=== PATIENT | female | born 1970 | race Caucasian/White ===

== ENCOUNTER 2016-10-24 09:37 | Emergency (ER) | payer OTHER ==
[~2016-10-24] VITALS: Ht 157.5 cm; Wt 56.8 kg
[2016-10-24] MEDS ORDERED: DULO1CAP2 (09:49)
[2016-10-24] MEDS ORDERED: ALPR0.25 (09:49)
[2016-10-24] MEDS ORDERED: ASPIRIN 81 MG CHEW TABLET PO ONE (10:15)
[2016-10-24 10:31] LABS: BASO % 0.3 % (0.0-1.0); EOS # 0.2 K/mm3 (0.0-0.50); EOS % 1.8 % (0.0-3.0); LARGE UNSTAINED CELL # 0.1 K/mm3 (0.0-0.4); LARGE UNSTAINED CELL % 1.3 % (0.0-4.0); LYMPH # 1.2 K/mm3 (1.5-4.5); LYMPH % 11.8 % (24.0-44.0); MEAN CORPUSCULAR HEMOGLOBIN 30.1 pg (27.0-33.0); MEAN CORPUSCULAR HGB CONC 33.3 g/dl (32.0-36.5); MEAN CORPUSCULAR VOLUME 90.3 fl (80.0-96.0); MONO # 0.3 K/mm3 (0.0-0.8); NEUTROPHILS % 81.7 % (36.0-66.0); PLATELET COUNT, AUTOMATED 265 k/mm3 (150-450); RED CELL DISTRIBUTION WIDTH 12.4 % (11.5-14.5); WHITE BLOOD COUNT 9.8 K/mm3 (4.0-10.0)
[2016-10-24 10:42] LABS: ANION GAP 6 MEQ/L (8-16); BLOOD UREA NITROGEN 8 MG/DL (7-18); CALCIUM LEVEL 8.9 MG/DL (8.5-10.1); CARBON DIOXIDE LEVEL 27 MEQ/L (21-32); CHLORIDE LEVEL 109 MEQ/L (98-107); CREATININE FOR GFR 0.73 MG/DL (0.55-1.02); GLOMERULAR FILTRATION RATE > 60.0 (>58); GLUCOSE, FASTING 102 MG/DL (70-105); POTASSIUM SERUM 3.8 MEQ/L (3.5-5.1); SODIUM LEVEL 142 MEQ/L (136-145)
--- NOTE | 2016-10-24 10:47 | REP ---
Portable chest x-ray: Single view. History: Chest pain. No comparison chest x-ray. Findings: EKG monitoring electrodes overlie the chest. The lungs are symmetrically aerated and free of infiltrate. Pleural angles are sharp. Heart size is normal. Impression: Negative portable chest x-ray. Signed by Tobin Damian MD 10/24/2016 10:55 A
[2016-10-24 13:29] VITALS: BP 109/68
--- NOTE | 2016-10-25 18:17 | ECGEPIP ---
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
--- NOTE | 2016-10-25 18:19 | ECGEPIP ---
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
== END 2016-10-24 13:33 | disposition home or self-care (01) ==
LOC: M ED 09:37
DX: R07.89 Other chest pain (principal); Z82.49 Family history of ischemic heart disease and other diseases of the circulatory system; F41.9 Anxiety disorder, unspecified; F32.9 Major depressive disorder, single episode, unspecified; Z90.79 Acquired absence of other genital organ(s); Z79.899 Other long term (current) drug therapy

== ENCOUNTER 2017-05-24 18:39 | Emergency (ER) | payer OTHER ==
[2017-05-24] MEDS: ONDANSETRON 4MG/2ML VIAL (J2405) IV (20:20)
[2017-05-24] MEDS: KETOROLAC 30 MG/ML VIAL (J1885) IV (20:20)
[2017-05-24 20:21] LABS: BASO % 0.2 % (0.0-1.0); EOS # 0.4 10^3/uL (0.0-0.50); EOS % 2.2 % (0.0-3.0); HEMATOCRIT 43.2 % (36.0-47.0); HEMOGLOBIN 14.2 g/dl (12.0-16.0); IMMATURE GRANULOCYTE % 0.4 % (0-3.0); LYMPH # 1.4 10^3/uL (1.5-4.5); LYMPH % 7.9 % (24.0-44.0); MEAN CORPUSCULAR HEMOGLOBIN 29.9 pg (27.0-33.0); MEAN CORPUSCULAR HGB CONC 32.9 g/dl (32.0-36.5); MEAN CORPUSCULAR VOLUME 90.9 fl (80.0-96.0); MONO # 0.6 10^3/uL (0.0-0.8); MONO % 3.6 % (0.0-5.0); NEUTROPHILS % 85.7 % (36.0-66.0); PLATELET COUNT, AUTOMATED 308 10^3/uL (150-450); RED BLOOD COUNT 4.75 10^6/uL (4.00-5.40); RED CELL DISTRIBUTION WIDTH 12.4 % (11.5-14.5); WHITE BLOOD COUNT 17.6 10^3/uL (4.0-10.0)
[2017-05-24 20:48] LABS: ANION GAP 7 MEQ/L (8-16); BLOOD UREA NITROGEN 7 MG/DL (7-18); CALCIUM LEVEL 8.9 MG/DL (8.5-10.1); CARBON DIOXIDE LEVEL 27 MEQ/L (21-32); CHLORIDE LEVEL 105 MEQ/L (98-107); CREATININE FOR GFR 0.81 MG/DL (0.55-1.30); GLOMERULAR FILTRATION RATE > 60.0 (>58); GLUCOSE, FASTING 96 MG/DL (70-100); SODIUM LEVEL 139 MEQ/L (136-145)
[2017-05-24 20:52] LABS: HCG, SERUM QUANTITATIVE < 1.0 MIU/ML
[2017-05-24 20:52] LABS: C REACTIVE PROTEIN QUANTITATIV < 0.30 MG/DL (0.00-0.30)
[2017-05-24 21:17] LABS: KETONE, URINE AUTO RFX 1+ mg/dL (NEGATIVE); LEUKOCYTE ESTERASE UR AUTO RFX NEGATIVE (NEGATIVE); MUCUS, URINE RFX MODERATE (NEGATIVE); NITRITE, URINE AUTO RFX NEGATIVE (NEGATIVE); RBC, URINE AUTO RFX 3 /HPF (0-3); SPECIFIC GRAVITY UR AUTO RFX 1.027 (1.002-1.035); SQUAM EPITHELIAL CELL UR AURFX 3 /HPF (0-6); WBC, URINE AUTO RFX 1 /HPF (0-3)
[2017-05-24] MEDS: MORPHINE 4 MG/ML 1ML VIAL (J2270) IV (22:00)
[2017-05-25] MEDS: MORPHINE 4 MG/ML 1ML VIAL (J2270) IV (00:15)
[2017-05-25] MEDS: ONDANSETRON 4 MG ORAL DISINTEGRATING TAB (S0181) PO (00:15)
[2017-05-25] MEDS: OXYCODONE/APAP 5MG/325MG(BULK FOR ED) 1 TABLET PO (00:15)
== END 2017-05-25 00:57 | disposition home or self-care (01) ==
LOC: M ED 05-25 00:57
DX: N83.201 Unspecified ovarian cyst, right side (principal); F41.9 Anxiety disorder, unspecified; F33.9 Major depressive disorder, recurrent, unspecified; Z79.899 Other long term (current) drug therapy; Z98.890 Other specified postprocedural states
CPT/HCPCS: J2270

== ENCOUNTER 2017-05-30 10:08 | Emergency (ER) | payer OTHER ==
[2017-05-30] MEDS: PERCOCET 5MG/325MG TAB PO (11:28)
[2017-05-30 11:40] LABS: BASO % 0.3 % (0.0-1.0); EOS # 0.3 10^3/uL (0.0-0.50); EOS % 2.7 % (0.0-3.0); HEMATOCRIT 41.1 % (36.0-47.0); HEMOGLOBIN 13.3 g/dl (12.0-16.0); IMMATURE GRANULOCYTE % 0.3 % (0-3.0); LYMPH # 1.7 10^3/uL (1.5-4.5); LYMPH % 15.5 % (24.0-44.0); MEAN CORPUSCULAR HEMOGLOBIN 29.6 pg (27.0-33.0); MEAN CORPUSCULAR HGB CONC 32.4 g/dl (32.0-36.5); MEAN CORPUSCULAR VOLUME 91.5 fl (80.0-96.0); MONO # 0.5 10^3/uL (0.0-0.8); MONO % 4.9 % (0.0-5.0); NEUTROPHILS # 8.4 10^3/uL (1.8-7.7); NEUTROPHILS % 76.3 % (36.0-66.0); PLATELET COUNT, AUTOMATED 309 10^3/uL (150-450); RED BLOOD COUNT 4.49 10^6/uL (4.00-5.40); RED CELL DISTRIBUTION WIDTH 12.3 % (11.5-14.5); WHITE BLOOD COUNT 10.9 10^3/uL (4.0-10.0)
== END 2017-05-30 13:26 | disposition home or self-care (01) ==
LOC: M ED 10:08
DX: N83.201 Unspecified ovarian cyst, right side (principal); R18.8 Other ascites; F41.9 Anxiety disorder, unspecified; F33.9 Major depressive disorder, recurrent, unspecified; F17.210 Nicotine dependence, cigarettes, uncomplicated; Z98.890 Other specified postprocedural states
CPT/HCPCS: 76856

== ENCOUNTER 2017-06-14 05:51 | Day surgery (SDC) | payer OTHER ==
[2017-06-14] MEDS: LR 1,000 ML IV ×3 (06:51)
[2017-06-14] MEDS ORDERED: LIDOCAINE 2% INJ 100 MG/5 ML SDV (FOR ANES.) As Ordered ×3 (07:08)
[2017-06-14] MEDS ORDERED: PROPOFOL 200 MG/20 ML VIAL As Ordered ×3 (07:08)
[2017-06-14] MEDS ORDERED: ROCURONIUM BROMIDE 50 MG/5 ML VIAL As Ordered ×3 (07:08)
[2017-06-14] MEDS ORDERED: fentaNYL 250 MCG/5 ML INJECTION (J3010) As Ordered ×3 (07:09)
[2017-06-14] MEDS ORDERED: MIDAZOLAM INJ 2 MG/2 ML VIAL (J2250) As Ordered ×3 (07:09)
[2017-06-14] MEDS ORDERED: dexameTHASONE 4 MG/ML 1ML VIAL (J1100) As Ordered ×3 (07:09)
[2017-06-14] MEDS: CEFAZOLIN SOD 1 GM in APPROPRIATE DILUENT 1 EA IV ×3 (07:45)
[2017-06-14] MEDS: ACETAMINOPHEN 650 MG SUPP PR ×3 (07:50)
[2017-06-14] MEDS ORDERED: GLYCOPYRROLATE INJ 0.2 MG/ML 2 ML VIAL As Ordered ×3 (08:03)
[2017-06-14] MEDS ORDERED: ONDANSETRON 4MG/2ML VIAL (J2405) As Ordered ×6 (08:03→11:22)
[2017-06-14] MEDS ORDERED: KETOROLAC 60 MG/2 ML VIAL (J1885) As Ordered ×3 (08:03)
[2017-06-14] MEDS ORDERED: NEOSTIGMINE 10 MG/10 ML VIAL (J2710) As Ordered ×3 (08:03)
[2017-06-14] MEDS ORDERED: HYDROmorphone HCL 2 MG/ML 1ML VIAL (J1170) As Ordered ×3 (08:03)
[2017-06-14] MEDS: LIDOCAINE W/EPINEPHRINE 1% 20ML VIAL As Ordered ×3 (08:06)
[2017-06-14] MEDS: ACETAMINOPHEN 650 MG SUPP As Ordered ×3 (08:26)
[2017-06-14] MEDS ORDERED: fentaNYL 100 MCG/2 ML INJECTION (J3010) As Ordered ×3 (09:10)
[2017-06-14] MEDS ORDERED: PERCOCET 5MG/325MG TAB PO ×3 (09:15)
[2017-06-14] MEDS ORDERED: LR 1,000 ML IV ×3 (09:15)
[2017-06-14] MEDS: fentaNYL 100 MCG/2 ML INJECTION (J3010) IV ×12 (09:18→09:45)
[2017-06-14] MEDS: PERCOCET 5MG/325MG TAB PO ×3 (09:18)
[2017-06-14] MEDS: ONDANSETRON 4MG/2ML VIAL (J2405) IV ×3 (11:30)
[2017-06-14] MEDS ORDERED: IBUPROFEN 800 MG TAB PO ×3 (12:00)
== END 2017-06-15 12:32 | disposition home or self-care (01) ==
LOC: M SDC 05:51
DX: N83.12 Corpus luteum cyst of left ovary (principal); R10.31 Right lower quadrant pain (principal); N83.292 Other ovarian cyst, left side; G89.29 Other chronic pain; N83.201 Unspecified ovarian cyst, right side; N73.6 Female pelvic peritoneal adhesions (postinfective); Z87.42 Personal history of other diseases of the female genital tract; F41.9 Anxiety disorder, unspecified; F32.9 Major depressive disorder, single episode, unspecified; Z90.710 Acquired absence of both cervix and uterus; Z79.899 Other long term (current) drug therapy; Z72.0 Tobacco use
CPT/HCPCS: 58661

== ENCOUNTER 2019-04-24 05:59 | Day surgery (SDC) | payer OTHER ==
[~2019-04-24] VITALS: Ht 157.5 cm; Wt 79.7 kg
[~2019-04-24 05:59] MED LIST: ABIL1TAB13 PO; ALPR0.25; CLON0.5T2 PO; CYMB1CAP5 PO; CYMB60CA3 PO; DULO1CAP5 PO; DULO1CAP6 PO; GABA-843 PO; IBUP80TA PO; NAPR250T4 PO; PERC5TAB12 PO; PRAZ2CAP PO; TRAZ-252 PO; ULTR50TA8 PO; ZOFR4TAB14 PO
[2019-04-24] MEDS ORDERED: BUPIVACAINE HCL 0.25% 10 ML VIAL As Ordered ONE (06:53)
[2019-04-24] MEDS ORDERED: dexameTHASONE 4 MG/ML 1ML VIAL (J1100) As Ordered ONE (06:53)
[2019-04-24] MEDS ORDERED: LIDOCAINE 1% MDV 20ML VIAL As Ordered ONE (06:53)
[2019-04-24] MEDS ORDERED: LR 1,000 ML IV ONE (07:00)
[2019-04-24] MEDS ORDERED: ceFAZolin SOD 2 GM in IV 1 EA IV ONE (07:00)
[2019-04-24] MEDS ORDERED: PROPOFOL 200 MG/20 ML VIAL As Ordered ONE ×2 (07:12→08:34)
[2019-04-24] MEDS ORDERED: MIDAZOLAM INJ 2 MG/2 ML VIAL (J2250) As Ordered ONE (07:12)
[2019-04-24] MEDS ORDERED: fentaNYL 100 MCG/2 ML INJECTION (J3010) As Ordered ONE (07:12)
[2019-04-24] MEDS ORDERED: LIDOCAINE 2% INJ 100 MG/5 ML SDV (FOR ANES.) As Ordered ONE (07:12)
[2019-04-24] MEDS ORDERED: ONDANSETRON 4MG/2ML VIAL (J2405) As Ordered ONE (07:13)
[2019-04-24] MEDS ORDERED: ePHEDrine SULFATE 25 MG/5 ML(5MG/ML) SYRINGE As Ordered ONE (08:03)
[2019-04-24] MEDS ORDERED: ACETAMINOPHEN 1000MG 100ML IV BTL (OFIRMEV) (J0131 PER 10MG) As Ordered ONE (08:03)
[2019-04-24] MEDS ORDERED: HYDR-3713 PO (08:46)
[2019-04-24 09:15] VITALS: BP 104/53
[2019-04-24] MEDS ORDERED: fentaNYL 100 MCG/2 ML INJECTION (J3010) IV PRN (09:15)
[2019-04-24] MEDS ORDERED: PERCOCET 5MG/325MG TAB PO PRN (09:15)
[2019-04-24] MEDS ORDERED: ONDANSETRON 4MG/2ML VIAL (J2405) IV PRN (09:15)
[2019-04-24] MEDS ORDERED: LR 1,000 ML IV SCH (09:15)
--- NOTE | 2019-04-24 14:33 | RO ---
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 PROCEDURE: Left dorsal exostectomy and deep peroneal nerve release. SURGEON: Markus Palma DPM CHOCOLATE PACKER: None. ANESTHESIA: Monitored anesthesia care. Preoperative injection of 17 mL of 1:1 mixture of 1% lidocaine plain, 0.5% Marcaine plain. ESTIMATED BLOOD LOSS: Minimal. MATERIALS: #4-0 Vicryl, #4-0 nylon. INJECTABLES: 1 mL Decadron, 4 mg/mL. COMPLICATIONS: None. CONDITION: Stable. Mariely Corea is a 48-year-old female who presents to [facility] with a painful nerve to her left foot. She has had previous injections without long-term relief. She presents today for surgical correction. The patient's side and site were identified and marked in preoperative area. Consent was reviewed and obtained. All risks, complications, and alternatives to the procedure were explained to the patient in detail, and all questions were answered. DESCRIPTION OF PROCEDURE: Patient was brought to the operating room and placed on the operating room table in supine position. Monitored anesthesia care was delivered by the anesthesia team. Preoperative injection of 17 mL of 1:1 mixture 1% lidocaine plain, 0.5% Marcaine plain were injected in the left foot. The left foot was prepped and draped in normal sterile fashion. Tourniquet was applied to the left ankle and inflated to 250 mmHg. A curvilinear incision was drawn over the base of the 1st metatarsal extending to the dorsal foot; it was carried through with a #15 blade. Dissection was carried down until the superficial retinaculum was identified. This was transected, and the deep peroneal nerve was identified underneath. This was carefully protected using Vesseloops. The extensor hallucis brevis tendon was noted to be overlying this nerve, and this was transected. There was the exostosis noted plantar and medial to the nerve at the dorsal surface of the medial cuneiform. This was removed with rongeur and smoothed with rasp. Some intra-nerve adhesions were noted, which were released using saline in an intra-sheath injection with a 30-gauge needle. Some further adhesions were removed until no obvious restrictions were noted. Site was irrigated with normal saline. Closure was performed using #4-0 Vicryl and #4-0 nylon, again, taking care not to impinge on the nerve during closure. 1 mL Decadron was injected. Sterile dressings were applied. Tourniquet was deflated. Patient was brought to post anesthesia care unit (PACU), vital signs stable and neurovascular status intact. She will be weightbearing as tolerated. She will followup at the office in two days.
== END 2019-04-24 09:36 | disposition home or self-care (01) ==
LOC: M SDC 05:59
PROVIDERS: ATTEND Podiatrist Foot & Ankle Surgery
DX: M25.775 Osteophyte, left foot (principal); M89.8X7 Other specified disorders of bone, ankle and foot; F41.9 Anxiety disorder, unspecified; F32.9 Major depressive disorder, single episode, unspecified; Z79.899 Other long term (current) drug therapy; F17.218 Nicotine dependence, cigarettes, with other nicotine-induced disorders
CPT/HCPCS: 28035; 28122; 88300; J0131; J0690; J1100; J2250; J2405; J3010

== ENCOUNTER 2020-02-19 12:44 | Emergency (ER) | payer OTHER ==
[~2020-02-19] VITALS: Ht 157.5 cm; Wt 74.1 kg
[~2020-02-19 12:44] MED LIST changes: +HYDR-3713 PO
[2020-02-19 12:45] VITALS: BP 142/85
== END 2020-02-19 13:54 | disposition home or self-care (01) ==
LOC: M ED 12:44
DX: S05.11XA Contusion of eyeball and orbital tissues, right eye, initial encounter (principal); Y04.8XXA Assault by other bodily force, initial encounter; Y92.198 Other place in other specified residential institution as the place of occurrence of the external cause; Y93.89 Activity, other specified; Y99.0 Civilian activity done for income or pay; F17.200 Nicotine dependence, unspecified, uncomplicated; Z79.899 Other long term (current) drug therapy

== ENCOUNTER 2020-05-08 11:08 | Emergency (ER) | payer OTHER ==
[~2020-05-08] VITALS: Ht 157.5 cm; Wt 75.0 kg
[~2020-05-08 11:08] MED LIST changes: +GABA-282 PO; -GABA-843 PO
--- OUTSIDE RECORDS SUMMARY | 2020-05-08 11:15 | CCD ---
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 Name Role Phone Segundo PAIZ DPM Unavailable Unavailable Segundo PAIZ DPM Unavailable Unavailable Segundo PAIZ DPM Unavailable Unavailable Segundo PAIZ DPM Unavailable Unavailable Segundo PAIZ DPM Unavailable Unavailable Segundo PAIZ DPM Unavailable Unavailable Segundo PAIZ DPM Unavailable Unavailable Segundo PAIZ DPM Unavailable Unavailable Segundo PAIZ DPM Unavailable Unavailable Segundo PAIZ DPM Unavailable Unavailable Segundo PAIZ DPM Unavailable Unavailable Segundo PAIZ DPM Unavailable Unavailable Segundo PAIZ DPM Unavailable Unavailable Segundo PAIZ DPM Unavailable Unavailable Segundo PAIZ DPM Unavailable Unavailable Segundo PAIZ DPM Unavailable Unavailable Segundo PAIZ DPM Unavailable Unavailable Segundo PAIZ DPM Unavailable Unavailable Segundo PAIZ DPM Unavailable Unavailable Segundo PAIZ DPM Unavailable Unavailable Segundo PAIZ DPM Unavailable Unavailable Segundo PAIZ DPM Unavailable Unavailable Segundo PAIZ DPM Unavailable Unavailable Segundo PAIZ DPM Unavailable Unavailable Segundo PAIZ DPM Unavailable Unavailable MAJAK, R BRADLEY DPM Unavailable Unavailable MAJAK, R BRADLEY DPM Unavailable Unavailable MAJAK, R BRADLEY DPM Unavailable Unavailable MAJAK, R BRADLEY DPM Unavailable Unavailable MAJAK, R BRADLEY DPM Unavailable Unavailable Re-disclosure Warning The records that you are about to access may contain information from federally-assisted alcohol or drug abuse programs. If such information is present, then the following federally mandated warning applies: This information has been disclosed to you from records protected by federal confidentiality rules (42 CFR part 2). The federal rules prohibit you from making any further disclosure of this information unless further disclosure is expressly permitted by the written consent of the person to whom it pertains or as otherwise permitted by 42 CFR part 2. A general authorization for the release of medical or other information is NOT sufficient for this purpose. The Federal rules restrict any use of the information to criminally investigate or prosecute any alcohol or drug abuse patient.The records that you are about to access may contain highly sensitive health information, the redisclosure of which is protected by Article 27-F of the [facility] Public Health law. If you continue you may have access to information: Regarding HIV / AIDS; Provided by facilities licensed or operated by the [facility] Office of Mental Health; or Provided by the [facility] Office for People With Developmental Disabilities. If such information is present, then the following [facility] mandated warning applies: This information has been disclosed to you from confidential records which are protected by state law. State law prohibits you from making any further disclosure of this information without the specific written consent of the person to whom it pertains, or as otherwise permitted by law. Any unauthorized further disclosure in violation of state law may result in a fine or shelter sentence or both. A general authorization for the release of medical or other information is NOT sufficient authorization for further disc losure. Family History Family Member Name Family Member Gender Family Member Status Date o f Status Description Data Source(s) Unknown Female Problem [facility] ([facility]) Unknown Male Encounters Encounter Providers Location Date Indications Data Source(s ) Outpatient Attender: BRADLEY PAIZ [facility] 10/2019 10:00:00 AM EDT [facility] ([facility] Outpatient Attender: BRADLEY MAJAK [facility] 06/16 08:30:00 AM EDT [facility] ([facility] Medications Medication Brand Name Start Date Product Form Dose Route Admi nistrative Instructions Pharmacy Instructions Status Indications Reaction Description Data Source(s) 50 mg 04/22/2020 12:00:00 AM EST tablet 45 TAKE 1&1/2 TABLETS BY MOUTH AT BEDTIME DIRECTED TAKE 1&1/2 TABLETS BY MOUTH AT BEDTIME DIRECTED [facility] 250 mg 04/01/2020 12:00:00 AM EST tablet 6 TAKE TWO TABLETS BY MOUTH DAY ONE THEN ONE TABLET ONCE DAILY FOR 4 DAYS TAKE TWO TABLETS BY MOUTH DAY ONE THEN O NE TABLET ONCE DAILY FOR 4 DAYS SOLD: 04/01/2020 [facility] 1 mg 03/24/2020 12:00:00 AM EST capsule 30 TAKE ONE CAPSULE BY MOUTH AT BEDTIME NEEDED FOR NIGHTMARES TAKE ONE CAPSULE BY MOUTH AT BEDTIME NEEDED FOR NIGHTMARES SOLD: 04/23/2020 [facility] 300 mg 03/24/2020 12:00:00 AM EST capsule 90 TAKE ONE CAPSULE BY MOUTH THREE TIMES A DAY DIRECTED TAKE ONE CAPSULE BY MOUTH THREE TIMES A DAY DIRECTE D SOLD: 03/25/2020 [facility] 1 mg 03/24/2020 12:00:00 AM EST capsule 30 TAKE ONE CAPSULE BY MOUTH AT BEDTIME NEEDED FOR NIGHTMARES TAKE ONE CAPSULE BY MOUTH AT BEDTIME NEEDED FOR NIGHTMARES SOLD: 03/25/2020 [facility] 300 mg 03/24/2020 12:00:00 AM EST capsule 90 TAKE ONE CAPSULE BY MOUTH THREE TIMES A DAY DIRECTED TAKE ONE CAPSULE BY MOUTH THREE TIMES A DAY DIRECTE D SOLD: 04/23/2020 [facility] 20 mg 03/24/2020 12:00:00 AM EST capsule,delayed release (DR/EC) 30 TAKE ONE CAPSULE BY MOUTH EVERY DAY TAKE ONE CAPSULE BY MOUTH EVERY DAY SOLD: 03/25/2020 [facility] 60 mg 03/24/2020 12:00:00 AM EST capsule,delayed release (DR/EC) 30 TAKE ONE CAPSULE BY MOUTH EVERY DAY TAKE ONE CAPSULE BY MOUTH EVERY DAY SOLD: 04/23/2020 [facility] 2 mg 03/24/2020 12:00:00 AM EST tablet 30 TAKE ONE TABLET BY MOUTH EVERY MORNING TAKE ONE TABLET BY MOUTH EVERY MORNING SOLD: 04/23/2020 [facility] 2 mg 03/24/2020 12:00:00 AM EST tablet 30 TAKE ONE TABLET BY MOUTH EVERY MORNING TAKE ONE TABLET BY MOUTH EVERY MORNING SOLD: 03/25/2020 [facility] 60 mg 03/24/2020 12:00:00 AM EST capsule,delayed release (DR/EC) 30 TAKE ONE CAPSULE BY MOUTH EVERY DAY TAKE ONE CAPSULE BY MOUTH EVERY DAY SOLD: 03/25/2020 [facility] 1 mg 01/20/2020 12:00:00 AM EDT capsule 30 TAKE ONE CAPSULE BY MOUTH EVERY DAY AT BEDTIME NEEDED FOR NIGHTMARES TAKE ONE CAPSULE BY MOUTH EVERY DAY AT BEDTIME NEEDED FOR NIGHTMARES SOLD: 01/20/2020 [facility] 50 mg 01/10/2020 12:00:00 AM EDT tablet 45 TAKE ONE AND ONE-HALF TABLETS BY MOUTH EVERY DAY AT BEDTIME TAKE ONE AND ONE-HALF TABLETS BY MOUTH E VERY DAY AT BEDTIME SOLD: 01/17/2020 [facility] 50 mg 01/10/2020 12:00:00 AM EDT tablet 45 TAKE ONE AND ONE-HALF TABLETS BY MOUTH EVERY DAY AT BEDTIME TAKE ONE AND ONE-HALF TABLETS BY MOUTH E VERY DAY AT BEDTIME SOLD: 03/25/2020 [facility] 2 mg 12/28/2019 12:00:00 AM EDT tablet 30 TAKE ONE TABLET BY MOUTH EVERY MORNING TAKE ONE TABLET BY MOUTH EVERY MORNING SOLD: 01/28/2020 [facility] 2 mg 12/28/2019 12:00:00 AM EDT tablet 30 TAKE ONE TABLET BY MOUTH EVERY MORNING TAKE ONE TABLET BY MOUTH EVERY MORNING SOLD: 12/30/2019 [facility] 2 mg 12/28/2019 12:00:00 AM EDT tablet 30 TAKE ONE TABLET BY MOUTH EVERY MORNING TAKE ONE TABLET BY MOUTH EVERY MORNING SOLD: 02/26/2020 [facility] 300 mg 12/12/2019 12:00:00 AM EDT capsule 90 TAKE ONE CAPSULE BY MOUTH THREE TIMES A DAY DIRECTED TAKE ONE CAPSULE BY MOUTH THREE TIMES A DAY DIRECTE D SOLD: 01/17/2020 [facility] 300 mg 12/12/2019 12:00:00 AM EDT capsule 90 TAKE ONE CAPSULE BY MOUTH THREE TIMES A DAY DIRECTED TAKE ONE CAPSULE BY MOUTH THREE TIMES A DAY DIRECTE D SOLD: 12/13/2019 [facility] 300 mg 10/16/2019 12:00:00 AM EDT capsule 90 TAKE ONE CAPSULE BY MOUTH THREE TIMES A DAY DIRECTED TAKE ONE CAPSULE BY MOUTH THREE TIMES A DAY DIRECTE D SOLD: 11/14/2019 [facility] 1 mg 10/16/2019 12:00:00 AM EDT capsule 30 TAKE ONE CAPSULE BY MOUTH AT BEDTIME NEEDED FOR NIGHTMARES TAKE ONE CAPSULE BY MOUTH AT BEDTIME NEEDED FOR NIGHTMARES SOLD: 11/14/2019 [facility] 60 mg 10/16/2019 12:00:00 AM EDT capsule,delayed release (DR/EC) 30 TAKE ONE CAPSULE BY MOUTH EVERY DAY TAKE ONE CAPSULE BY MOUTH EVERY DAY SOLD: 10/16/2019 [facility] 60 mg 10/16/2019 12:00:00 AM EDT capsule,delayed release (DR/EC) 30 TAKE ONE CAPSULE BY MOUTH EVERY DAY TAKE ONE CAPSULE BY MOUTH EVERY DAY SOLD: 12/13/2019 [facility] 300 mg 10/16/2019 12:00:00 AM EDT capsule 90 TAKE ONE CAPSULE BY MOUTH THREE TIMES A DAY DIRECTED TAKE ONE CAPSULE BY MOUTH THREE TIMES A DAY DIRECTE D SOLD: 10/16/2019 [facility] 60 mg 10/16/2019 12:00:00 AM EDT capsule,delayed release (DR/EC) 30 TAKE ONE CAPSULE BY MOUTH EVERY DAY TAKE ONE CAPSULE BY MOUTH EVERY DAY SOLD: 11/14/2019 [facility] 60 mg 10/16/2019 12:00:00 AM EDT capsule,delayed release (DR/EC) 30 TAKE ONE CAPSULE BY MOUTH EVERY DAY TAKE ONE CAPSULE BY MOUTH EVERY DAY SOLD: 01/17/2020 [facility] 1 mg 10/16/2019 12:00:00 AM EDT capsule 30 TAKE ONE CAPSULE BY MOUTH AT BEDTIME NEEDED FOR NIGHTMARES TAKE ONE CAPSULE BY MOUTH AT BEDTIME NEEDED FOR NIGHTMARES SOLD: 10/16/2019 [facility] 50 mg 09/28/2019 12:00:00 AM EDT tablet 45 TAKE 1&1/2 TABLETS BY MOUTH AT BEDTIME DIRECTED TAKE 1&1/2 TABLETS BY MOUTH AT BEDTIME DIRECTED [facility] 50 mg 09/28/2019 12:00:00 AM EDT tablet 45 TAKE 1&1/2 TABLETS BY MOUTH AT BEDTIME DIRECTED TAKE 1&1/2 TABLETS BY MOUTH AT BEDTIME DIRECTED [facility] 50 mg 09/28/2019 12:00:00 AM EDT tablet 45 TAKE 1&1/2 TABLETS BY MOUTH AT BEDTIME DIRECTED TAKE 1&1/2 TABLETS BY MOUTH AT BEDTIME DIRECTED [facility] 20 mg 09/25/2019 12:00:00 AM EDT capsule,delayed release (DR/EC) 30 TAKE ONE CAPSULE BY MOUTH EVERY DAY TAKE ONE CAPSULE BY MOUTH EVERY DAY SOLD: 11/13/2019 [facility] 2 mg 09/25/2019 12:00:00 AM EDT tablet 30 TAKE ONE TABLET BY MOUTH EVERY MORNING TAKE ONE TABLET BY MOUTH EVERY MORNING SOLD: 11/25/2019 [facility] 2 mg 09/25/2019 12:00:00 AM EDT tablet 30 TAKE ONE TABLET BY MOUTH EVERY MORNING TAKE ONE TABLET BY MOUTH EVERY MORNING SOLD: 09/26/2019 [facility] 2 mg 09/25/2019 12:00:00 AM EDT tablet 30 TAKE ONE TABLET BY MOUTH EVERY MORNING TAKE ONE TABLET BY MOUTH EVERY MORNING SOLD: 10/25/2019 [facility] 20 mg 09/25/2019 12:00:00 AM EDT capsule,delayed release (DR/EC) 30 TAKE ONE CAPSULE BY MOUTH EVERY DAY TAKE ONE CAPSULE BY MOUTH EVERY DAY SOLD: 09/26/2019 [facility] 1 mg 08/12/2019 12:00:00 AM EDT capsule 30 TAKE ONE CAPSULE BY MOUTH EVERY DAY AT BEDTIME NEEDED FOR NIGHTMARES TAKE ONE CAPSULE BY MOUTH EVERY DAY AT BEDTIME NEEDED FOR NIGHTMARES SOLD: 09/18/2019 [facility] 1 mg 08/12/2019 12:00:00 AM EDT capsule 30 TAKE ONE CAPSULE BY MOUTH EVERY DAY AT BEDTIME NEEDED FOR NIGHTMARES TAKE ONE CAPSULE BY MOUTH EVERY DAY AT BEDTIME NEEDED FOR NIGHTMARES SOLD: 08/19/2019 [facility] 300 mg 08/12/2019 12:00:00 AM EDT capsule 90 TAKE ONE CAPSULE BY MOUTH THREE TIMES A DAY DIRECTED TAKE ONE CAPSULE BY MOUTH THREE TIMES A DAY DIRECTE D SOLD: 09/18/2019 [facility] 300 mg 08/12/2019 12:00:00 AM EDT capsule 90 TAKE ONE CAPSULE BY MOUTH THREE TIMES A DAY DIRECTED TAKE ONE CAPSULE BY MOUTH THREE TIMES A DAY DIRECTE D SOLD: 08/19/2019 [facility] 20 mg 07/29/2019 12:00:00 AM EDT capsule,delayed release (DR/EC) 30 TAKE ONE CAPSULE BY MOUTH EVERY DAY TAKE ONE CAPSULE BY MOUTH EVERY DAY SOLD: 09/10/2019 [facility] 20 mg 07/29/2019 12:00:00 AM EDT capsule,delayed release (DR/EC) 30 TAKE ONE CAPSULE BY MOUTH EVERY DAY TAKE ONE CAPSULE BY MOUTH EVERY DAY SOLD: 08/07/2019 [facility] 20 mg 07/29/2019 12:00:00 AM EDT capsule,delayed release (DR/EC) 30 TAKE ONE CAPSULE BY MOUTH EVERY DAY TAKE ONE CAPSULE BY MOUTH EVERY DAY SOLD: 10/22/2019 [facility] 50 mg 07/24/2019 12:00:00 AM EDT tablet 45 TAKE 1 AND 1/2 TABLET BY MOUTH ONCE DAILY AT BEDTIME TAKE 1 AND 1/2 TABLET BY MOUTH ONCE DAILY AT BEDTIME S OLD: 10/22/2019 [facility] 50 mg 07/24/2019 12:00:00 AM EDT tablet 45 TAKE 1 AND 1/2 TABLET BY MOUTH ONCE DAILY AT BEDTIME TAKE 1 AND 1/2 TABLET BY MOUTH ONCE DAILY AT BEDTIME S OLD: 08/07/2019 [facility] 50 mg 07/24/2019 12:00:00 AM EDT tablet 45 TAKE 1 AND 1/2 TABLET BY MOUTH ONCE DAILY AT BEDTIME TAKE 1 AND 1/2 TABLET BY MOUTH ONCE DAILY AT BEDTIME S OLD: 09/10/2019 [facility] 60 mg 06/17/2019 12:00:00 AM EST capsule,delayed release (DR/EC) 30 TAKE ONE CAPSULE BY MOUTH EVERY DAY TAKE ONE CAPSULE BY MOUTH EVERY DAY SOLD: 07/16/2019 [facility] 2 mg 06/17/2019 12:00:00 AM EST tablet 30 TAKE ONE TABLET BY MOUTH EVERY MORNING TAKE ONE TABLET BY MOUTH EVERY MORNING SOLD: 06/19/2019 [facility] 2 mg 06/17/2019 12:00:00 AM EST capsule 30 TAKE ONE CAPSULE BY MOUTH EVERY DAY AT BEDTIME FOR NIGHTMARES TAKE ONE CAPSULE BY MOUTH EVERY DAY AT B EDTIME FOR NIGHTMARES SOLD: 07/16/2019 [facility] 300 mg 06/17/2019 12:00:00 AM EST capsule 90 TAKE ONE CAPSULE BY MOUTH THREE TIMES A DAY DIRECTED TAKE ONE CAPSULE BY MOUTH THREE TIMES A DAY DIRECTE D SOLD: 07/16/2019 [facility] 60 mg 06/17/2019 12:00:00 AM EST capsule,delayed release (DR/EC) 30 TAKE ONE CAPSULE BY MOUTH EVERY DAY TAKE ONE CAPSULE BY MOUTH EVERY DAY SOLD: 08/19/2019 [facility] 2 mg 06/17/2019 12:00:00 AM EST capsule 30 TAKE ONE CAPSULE BY MOUTH EVERY DAY AT BEDTIME FOR NIGHTMARES TAKE ONE CAPSULE BY MOUTH EVERY DAY AT B EDTIME FOR NIGHTMARES SOLD: 06/19/2019 [facility] 1 mg 06/17/2019 12:00:00 AM EST capsule 30 TAKE ONE CAPSULE BY MOUTH EVERY DAY AT BEDTIME NEEDED FOR NIGHTMARES TAKE ONE CAPSULE BY MOUTH EVERY DAY AT BEDTIME NEEDED FOR NIGHTMARES SOLD: 07/16/2019 [facility] 60 mg 06/17/2019 12:00:00 AM EST capsule,delayed release (DR/EC) 30 TAKE ONE CAPSULE BY MOUTH EVERY DAY TAKE ONE CAPSULE BY MOUTH EVERY DAY SOLD: 09/18/2019 [facility] 2 mg 06/17/2019 12:00:00 AM EST capsule 30 TAKE ONE CAPSULE BY MOUTH EVERY DAY AT BEDTIME FOR NIGHTMARES TAKE ONE CAPSULE BY MOUTH EVERY DAY AT B EDTIME FOR NIGHTMARES SOLD: 08/19/2019 [facility] 60 mg 06/17/2019 12:00:00 AM EST capsule,delayed release (DR/EC) 30 TAKE ONE CAPSULE BY MOUTH EVERY DAY TAKE ONE CAPSULE BY MOUTH EVERY DAY SOLD: 06/19/2019 [facility] 300 mg 06/17/2019 12:00:00 AM EST capsule 90 TAKE ONE CAPSULE BY MOUTH THREE TIMES A DAY DIRECTED TAKE ONE CAPSULE BY MOUTH THREE TIMES A DAY DIRECTE D SOLD: 06/19/2019 [facility] 1 mg 06/17/2019 12:00:00 AM EST capsule 30 TAKE ONE CAPSULE BY MOUTH EVERY DAY AT BEDTIME NEEDED FOR NIGHTMARES TAKE ONE CAPSULE BY MOUTH EVERY DAY AT BEDTIME NEEDED FOR NIGHTMARES SOLD: 06/19/2019 [facility] 2 mg 06/17/2019 12:00:00 AM EST tablet 30 TAKE ONE TABLET BY MOUTH EVERY MORNING TAKE ONE TABLET BY MOUTH EVERY MORNING SOLD: 08/19/2019 [facility] 2 mg 06/17/2019 12:00:00 AM EST tablet 30 TAKE ONE TABLET BY MOUTH EVERY MORNING TAKE ONE TABLET BY MOUTH EVERY MORNING SOLD: 07/16/2019 [facility] 20 mg 06/11/2019 12:00:00 AM EST capsule,delayed release (DR/EC) 30 TAKE ONE CAPSULE BY MOUTH EVERY DAY TAKE ONE CAPSULE BY MOUTH EVERY DAY SOLD: 06/13/2019 [facility] 75 mg 06/06/2019 12:00:00 AM EST capsule 10 TAKE ONE CAPSULE BY MOUTH TWICE A DAY FOR 5 DAYS TAKE ONE CAPSULE BY MOUTH TWICE A DAY FOR 5 DAYS SOLD: 06/06/2019 [facility] 500 mg 05/13/2019 12:00:00 AM EST capsule 14 TAKE ONE CAPSULE BY MOUTH TWICE A DAY TAKE ONE CAPSULE BY MOUTH TWICE A DAY SOLD: 05/13/2019 [facility] Cephalexin 500 MG Oral Capsule Cephalexin 05/13/2019 12:00:00 AM EST ORAL active [facility] ([facility] 5-325 mg 04/24/2019 12:00:00 AM EST tablet 20 TAKE ONE TO TWO TABLETS BY MOUTH EVERY 6 HOURS NEEDED FOR PAIN, MAXIMUM DAILY DOSE = EIGHT TABLETS TAKE ONE TO TWO TABLETS BY MOUTH EVERY 6 HOURS NEEDED FOR PAIN, MAXIMUM DAILY DOSE = EIGHT TABLETS SOLD: 04/24/2019 [facility] 50 mg 04/17/2019 12:00:00 AM EST tablet 45 TAKE 1 & 1/2 TABLETS BY MOUTH AT BEDTIME DIRECTED TAKE 1 & 1/2 TABLETS BY MOUTH AT BEDTIME DIRECTED S OLD: 06/19/2019 [facility] 300 mg 04/17/2019 12:00:00 AM EST capsule 90 TAKE ONE CAPSULE BY MOUTH THREE TIMES A DAY DIRECTED TAKE ONE CAPSULE BY MOUTH THREE TIMES A DAY DIRECTE D SOLD: 04/18/2019 [facility] 300 mg 04/17/2019 12:00:00 AM EST capsule 90 TAKE ONE CAPSULE BY MOUTH THREE TIMES A DAY DIRECTED TAKE ONE CAPSULE BY MOUTH THREE TIMES A DAY DIRECTE D SOLD: 05/22/2019 [facility] 1 mg 04/17/2019 12:00:00 AM EST capsule 30 TAKE ONE CAPSULE BY MOUTH AT BEDTIME NEEDED FOR NIGHTMARES TAKE ONE CAPSULE BY MOUTH AT BEDTIME NEEDED FOR NIGHTMARES SOLD: 05/22/2019 [facility] 20 mg 04/17/2019 12:00:00 AM EST capsule,delayed release (DR/EC) 30 TAKE ONE CAPSULE BY MOUTH EVERY DAY TAKE ONE CAPSULE BY MOUTH EVERY DAY SOLD: 04/18/2019 [facility] 50 mg 04/17/2019 12:00:00 AM EST tablet 45 TAKE 1 & 1/2 TABLETS BY MOUTH AT BEDTIME DIRECTED TAKE 1 & 1/2 TABLETS BY MOUTH AT BEDTIME DIRECTED S OLD: 05/22/2019 [facility] 50 mg 04/17/2019 12:00:00 AM EST tablet 45 TAKE 1 & 1/2 TABLETS BY MOUTH AT BEDTIME DIRECTED TAKE 1 & 1/2 TABLETS BY MOUTH AT BEDTIME DIRECTED S OLD: 04/18/2019 [facility] 1 mg 04/17/2019 12:00:00 AM EST capsule 30 TAKE ONE CAPSULE BY MOUTH AT BEDTIME NEEDED FOR NIGHTMARES TAKE ONE CAPSULE BY MOUTH AT BEDTIME NEEDED FOR NIGHTMARES SOLD: 04/18/2019 [facility] 60 mg 04/17/2019 12:00:00 AM EST capsule,delayed release (DR/EC) 30 TAKE ONE CAPSULE BY MOUTH EVERY DAY TAKE ONE CAPSULE BY MOUTH EVERY DAY SOLD: 04/18/2019 [facility] 60 mg 03/12/2019 12:00:00 AM EST capsule,delayed release (DR/EC) 30 TAKE ONE CAPSULE BY MOUTH EVERY DAY TAKE ONE CAPSULE BY MOUTH EVERY DAY SOLD: 03/19/2019 [facility] 20 mg 03/12/2019 12:00:00 AM EST capsule,delayed release (DR/EC) 30 TAKE ONE CAPSULE BY MOUTH EVERY DAY TAKE ONE CAPSULE BY MOUTH EVERY DAY SOLD: 03/19/2019 [facility] 400 mg 03/11/2019 12:00:00 AM EST capsule 90 TAKE ONE CAPSULE BY MOUTH THREE TIMES A DAY FOR ANXIETY TAKE ONE CAPSULE BY MOUTH THREE TIMES A DAY FOR ANXIET Y SOLD: 03/19/2019 [facility] 2 mg 03/11/2019 12:00:00 AM EST capsule 30 TAKE ONE CAPSULE BY MOUTH AT BEDTIME FOR NIGHTMARES TAKE ONE CAPSULE BY MOUTH AT BEDTIME FOR NIGHTMARES SO LD: 05/22/2019 [facility] 2 mg 03/11/2019 12:00:00 AM EST capsule 30 TAKE ONE CAPSULE BY MOUTH AT BEDTIME FOR NIGHTMARES TAKE ONE CAPSULE BY MOUTH AT BEDTIME FOR NIGHTMARES SO LD: 03/19/2019 [facility] 2 mg 03/11/2019 12:00:00 AM EST capsule 30 TAKE ONE CAPSULE BY MOUTH AT BEDTIME FOR NIGHTMARES TAKE ONE CAPSULE BY MOUTH AT BEDTIME FOR NIGHTMARES SO LD: 04/18/2019 [facility] 2 mg 02/12/2019 12:00:00 AM EDT tablet 30 TAKE ONE TABLET BY MOUTH EVERY MORNING TAKE ONE TABLET BY MOUTH EVERY MORNING SOLD: 04/18/2019 [facility] 2 mg 02/12/2019 12:00:00 AM EDT tablet 30 TAKE ONE TABLET BY MOUTH EVERY MORNING TAKE ONE TABLET BY MOUTH EVERY MORNING SOLD: 03/19/2019 [facility] Clonidine Hydrochloride 0.2 MG Oral Tablet CLONIDINE HCL 02/12/2019 12:00:00 AM EDT tablet 60 TAKE ONE TABLET BY MOUTH TWI CE A DAY NEEDED TAKE ONE TABLET BY MOUTH TWICE A DAY NEEDED SOLD: 03/19/2019 [facility] Clonidine Hydrochloride 0.2 MG Oral Tablet CLONIDINE HCL 02/12/2019 12:00:00 AM EDT tablet 60 TAKE ONE TABLET BY MOUTH TWI CE A DAY NEEDED TAKE ONE TABLET BY MOUTH TWICE A DAY NEEDED SOLD: 04/18/2019 [facility] 7.5 mg 12/18/2018 12:00:00 AM EDT tablet 30 TAKE ONE TABLET BY MOUTH EVERY DAY AT BEDTIME DIRECTED TAKE ONE TABLET BY MOUTH EVERY DAY AT BE DTIME DIRECTED SOLD: 03/09/2019 [facility] Insurance Providers Payer name Policy type / Coverage type Policy ID Covered democrat ID Covered democrat's relationship to kowalski Policy [place] Plan Information [facility] [id number] SP [id number] [facility] [id number] SP [id number] VALUE OPTIONS (MVP) [id number] SP [id number] [facility] [id number] SP [id number] SELF PAY SP [employer] [id number] SP [id number] [facility] [id number] SP [id number] P HEALTH CARE O [id number] S [id number] MVP MEDICAID HMO -O/P [id number] 18 [id number] [facility] C[facility] [id number] SP [id number] [facility] EXCHANGE U [id number] Self [id number] Ghi/Emblem HLTH (pr) Medigap Part B Self MVP (pr) Commercial Self [place] PHY [id number] SP [id number] MVP Commercial Self [id number] Problems, Conditions, and Diagnoses Code Display Name Description Problem Type Effective Dates Data Source(s) 877793127 Ingrowing nail Ingrowing nail Problem 07/11/2019 12:00: 00 AM EDT [facility] ([facility] [id number] Pain in limb Pain in limb Problem 07/11/2019 12:00:00 A M EDT [facility] ([facility] Surgeries/Procedures Procedure Description Date Indications Data Source(s) AVULSION NAIL PLATE PARTIAL/COMPLETE SIMPLE 1 08/22/19 12:00:00 AM EDT [facility] AVULSION NAIL PLATE PARTIAL/COMPLETE SIMPLE 1 07/08/19 12:00:00 AM EDT [facility] ([facility] ARTHRD MIDTARSL/TARSOMETATARSAL MULT/TRANSVRS 04/24/19 12:00:00 AM EST [facility] ([facility] NEURP MAJOR PRPH NRV ARM/LEG OPN OTH/THN SPEC 04/24/19 12:00:00 AM EST [facility] ([facility] Results ID Date Data Source [id number] 04/24/2020 12:00:00 AM EST [facility] Name Value Range Interpretation Code Description Data Roxanne rce(s) Supporting Document(s) Carestart Rapid COVID Antigen Test Positive [facility] This lab was reported by Yolanda anderson. ID Date Data Source [id number] 04/24/2019 08:11:00 AM EST [facility] Name Value Range Interpretation Code Description Data Roxanne rce(s) Supporting Document(s) Surgical pathology study Laboratory test result [facility] ([facility] FINAL DIAGNOSIS Left foot, dorsal exostosis, excision: Fragments of bone and cartilage, consistent with exostosis, gross only. 04/24/2019 - 1501 CLINICAL DIAGNOSIS Disorders of continuity of bone 04/24/2019 - 1439 GROSS DIAGNOSIS Received in formalin labeled "left foot dorsal exostosis" are irregular fragments of cartilage and bone aggregating 1 x 1 x 0.3 cm. Gross only. -YZ 04/24/2019 - 1440 Signed Deborah Rasmussen M.D. 04/24/2019 1502 Procedure
--- NOTE | 2020-05-08 12:02 | REP ---
INDICATION: hit head into brick wall swelling left frontal, nausea. COMPARISON: None. TECHNIQUE: Helical scanning is acquired. 5 mm axial images were reformatted. Coronal MPR images were generated. FINDINGS: Bone window settings demonstrate an intact bony calvarium. There is no evidence of skull fracture or incidental bony calvarial lesion. The visualized paranasal sinuses appear clear. No intraorbital abnormality is seen. On soft tissue window setting images; the lateral, third, and fourth ventricles are normal in size and position. Smiley-white differentiation pattern is normal above and below the tentorium. There are is no evidence of intracranial hemorrhage. No mass, edema, infarction, or midline shift is seen. No extra-axial fluid collection is appreciated. IMPRESSION: Negative noncontrast head CT. <Electronically signed by Elias Damian > 05/08/20 0500
--- NOTE | 2020-05-08 12:06 | REP ---
INDICATION: jumped over child, sig swelling bruising COMPARISON: None. TECHNIQUE: Four views right ankle. FINDINGS: There is no evidence of acute fracture, dislocation, or intrinsic bone disease.The ankle mortise is anatomic. There is mild to moderate lateral soft tissue swelling. IMPRESSION: No fracture or dislocation. <Electronically signed by Jonnie Smiley > 05/08/20 4543
--- NOTE | 2020-05-08 12:07 | REP ---
INDICATION: jumped over child, sig swelling bruising COMPARISON: None. TECHNIQUE: AP and lateral left forearm. FINDINGS: There is no evidence of acute fracture, dislocation, or intrinsic bone disease. IMPRESSION: No fracture or dislocation. <Electronically signed by Jonnie Smiley > 05/08/20 [id number]
[2020-05-08 12:29] VITALS: BP 129/71
== END 2020-05-08 12:40 | disposition home or self-care (01) ==
LOC: M ED 11:08
DX: S40.812A Abrasion of left upper arm, initial encounter (principal); S93.401A Sprain of unspecified ligament of right ankle, initial encounter; S00.83XA Contusion of other part of head, initial encounter; W03.XXXA Other fall on same level due to collision with another person, initial encounter; W22.09XA Striking against other stationary object, initial encounter; Y99.0 Civilian activity done for income or pay; Y92.9 Unspecified place or not applicable; Y99.9 Unspecified external cause status; Z79.899 Other long term (current) drug therapy

== ENCOUNTER → 2020-10-12 | Outpatient (CLI) | payer OTHER ==
[~2020-10-12] MED LIST changes: +NAPR-849 PO; -NAPR250T4 PO
--- NOTE | 2020-10-12 12:54 | REP ---
INDICATION: Z12.39 SCREENING MAMMO. COMPARISON: 09/04/2014 the latest prior FFDM. TECHNIQUE: Digital screening mammography was carried out bilaterally in the CC and MLO projections using both 2D and 3D modalities and compared to the prior exams. Both Michael and non Michael views were obtained. By history, the patient has no complaints of a palpable breast abnormality or other significant breast complaints. FINDINGS: The breasts are unchanged in size and shape. There are no mary soft tissue densities or spiculated masses. There is no internal architectural distortion. In the outer aspect of the left breast near the 3 o'clock position there is a new grouping of calcifications which may vary in size, shape, and radiographic density. These are seen best on the Michael views. No other suspicious features are seen in either breast. There is no skin thickening or nipple retraction. The Volpara volumetric breast density pattern is b. IMPRESSION: BIRADS/ACR category 0 mammogram. New grouping of calcifications in the left breast as described above and for which diagnostic digital magnified spot compression views are recommended in the CC and true lateral projections. This patient's Tyrer-Cuzick lifetime breast cancer risk assessment score is 13.3%. This mammogram was interpreted with the aid of an FDA-approved computer-aided detection system. The patient states she had a clinical breast exam in over a year. The patient letter being requested is M0. RECOMMENDATION: As above <Electronically signed by Colten Bernabe > 10/12/20 [id number]
== END ==
LOC: M WHC 11:23
PROVIDERS: ATTEND Family Medicine
DX: Z12.31 Encounter for screening mammogram for malignant neoplasm of breast (principal)

== ENCOUNTER → 2020-11-11 | Outpatient (CLI) | payer OTHER ==
--- NOTE | 2020-11-11 14:44 | REP ---
INDICATION: ADDL VIEWS LEFT BREAST. COMPARISON: Multiple the latest screening examination 10/12/2020 TECHNIQUE: Diagnostic digital magnified spot compression views of the left breast were obtained in the CC and MLO projections over a mak grouping of calcifications.. FINDINGS: Seen in the left breast near the 3 o'clock position there is a mak grouping of calcifications which vary in size, shape, and radiographic density. IMPRESSION: BIRADS/ACR category 4 mammogram. Mak grouping of calcifications seen in the left breast as described above in [place] biopsy is recommended. The patient letter being requested is M4 RECOMMENDATION: As above <Electronically signed by Colten Bernabe > 11/11/20 [id number]
== END ==
LOC: M WHC 13:50
PROVIDERS: ATTEND Family Medicine
DX: R92.2 Inconclusive mammogram (principal)

== ENCOUNTER → 2020-11-25 | Outpatient (CLI) | payer OTHER ==
[~2020-11-25] MED LIST changes: +CLONI1TA PO
[2020-11-25 12:02] VITALS: BP 118/80
--- NOTE | 2020-11-29 15:53 | ROOPDOC ---
[facility] Report Of Operation Report of Operation DATE OF PROCEDURE: 11/25/20 DIAGNOSIS: Left breast suspicious calcifications PROCEDURE: Left breast stereotactic biopsy with clip placement SURGEON: Melvina Stratton BLOOD LOSS: minimal Lidocaine 1% LOT [id number] Expiration 05/2024 Sodium Bicarbonate 8.4% LOT [id number] Expiration 05/2021 Hydromark clip LOT [id number] Expiration 06/2023 SHAPE: 3 Bx device: Stereotactic Mammotome Revolve Dual Vacuum- assisted Biopsy System 10G LOT [id number] Expiration 08/2023 REF [id number] Informed consent was obtained in the preop area. The most common risk and possible complications including bleeding, hematoma, bruising, infection, injury to surrounding structures were explained to the patient and patient expressed understanding. Patient was taken to the procedure room and placed prone on the [facility] Prone Breast Biopsy table with the left breast hanging through the table aperture. Left breast was placed into Cranio-Caudal compression and Safe [employer] V[employer]ic renuka images were taken. Suspicious calcifications were identified on the renuka images and target was set. CC approach from the bottom was chosen for this procedure. At this time, since we were able to confirm visibility of the suspicious calcifications and patient tolerated prone positioning allowing to proceed with the biopsy, appropriate time out was done stating patients name, date of , and the procedure to be performed. The left breast in CC compression was prepped in the usual fashion. Plain Lidocaine 1% and 8.4% sodium bicarbonate 10:1 mix was used to anesthetize the skin, the biopsy site and tissues along the anticipated biopsy tract. Small skin incision was made with blade number 11. Mammotome 10 G stereotactic breast biopsy device was inserted through the incision and advanced to the previously set coordinates marking the target lesion. Pre-fire imaging was taken to assure appropriate positioning. At this time, Mammotome 10 G breast biopsy device was fired and vacuum assisted biopsies were collected. The biopsy samples were investigated with [employer] system and calcifications were observed. Biopsy samples were then placed in the formaldehyde, marked with patients name and left breast biopsy site, and sent to pathology for evaluation. SHAPE 3 Hydromark clip was placed into the Mammotome biopsy device channel and deployed. Post-deployment imaging was done to assure appropriate clip deployment. Clip was noted in the left breast. At this point, paddle CC compression of the left breast was released and manual pressure was held to decrease harmonic effect and to assure hemostasis. No bleeding was noted upon removal of the pressure. Patient was slowly repositioned and placed into sitting position, and then assisted off the table. Post-biopsy mammogram of the left breast was obtained and showed clip in expected position. Postprocedural dressing was placed. Patient tolerated procedure well and was taken to the recovery unit in stable condition. Discharge instructions were discussed with the patient and patient expressed understanding. MELVINA STRATTON DO Nov 29, 2020 15:53
== END ==
LOC: M WHCPRO 09:18
PROVIDERS: ATTEND Surgery
DX: D24.2 Benign neoplasm of left breast (principal)

== ENCOUNTER → 2021-03-22 | Outpatient (CLI) | payer OTHER ==
[~2021-03-22] MED LIST changes: -CYMB60CA3 PO; +CYMB60CA4 PO
== END ==
LOC: M LABSMTC 09:58
PROVIDERS: ATTEND Anesthesiology
DX: Z01.812 Encounter for preprocedural laboratory examination (principal); Z20.822 Contact with and (suspected) exposure to COVID-19

== ENCOUNTER 2021-03-26 08:33 | Day surgery (SDC) | payer OTHER ==
[~2021-03-26] VITALS: Ht 157.5 cm; Wt 74.4 kg
[~2021-03-26 08:33] MED LIST changes: +NS 1,000 ML IV ONE
[2021-03-26] MEDS ORDERED: LIDOCAINE 2% 100MG/5ML SDV (FOR ANES.) As Ordered ONE (09:01)
[2021-03-26] MEDS ORDERED: propofoL 200 MG/20 ML VIAL As Ordered ONE ×2 (09:01→09:53)
[2021-03-26 10:19] VITALS: BP 160/90
== END 2021-03-26 10:32 | disposition home or self-care (01) ==
LOC: M OPP 08:33
PROVIDERS: ATTEND Internal Medicine Gastroenterology
DX: Z12.11 Encounter for screening for malignant neoplasm of colon (principal); Z80.0 Family history of malignant neoplasm of digestive organs; K57.30 Diverticulosis of large intestine without perforation or abscess without bleeding; Z79.899 Other long term (current) drug therapy

== ENCOUNTER → 2021-05-24 | Outpatient (CLI) | payer OTHER ==
[~2021-05-24] MED LIST changes: -NS 1,000 ML IV ONE
== END ==
LOC: M WHC 08:19
PROVIDERS: ATTEND Surgery
DX: R92.8 Other abnormal and inconclusive findings on diagnostic imaging of breast (principal)

== ENCOUNTER 2021-12-27 15:07 | Emergency (ER) | payer OTHER ==
[~2021-12-27] VITALS: Ht 157.5 cm; Wt 75.0 kg
[2021-12-27] MEDS ORDERED: CLON0.2T (15:20)
[2021-12-27] MEDS ORDERED: PRAZ1CAP (15:20)
[2021-12-27 16:45] VITALS: BP 123/71
== END 2021-12-27 17:31 | disposition home or self-care (01) ==
LOC: M ED 15:07
DX: S60.012A Contusion of left thumb without damage to nail, initial encounter (principal); V49.40XA Driver injured in collision with unspecified motor vehicles in traffic accident, initial encounter

== ENCOUNTER → 2022-02-01 | Outpatient (CLI) | payer OTHER ==
[~2022-02-01] MED LIST changes: +CLON0.2T; +PRAZ1CAP
== END ==
LOC: M WHC 07:55
PROVIDERS: ATTEND Family Medicine
DX: Z12.31 Encounter for screening mammogram for malignant neoplasm of breast (principal)

== ENCOUNTER → 2023-03-19 | Outpatient (CLI) | payer OTHER | LOC: M RAD 10:15 | PROVIDERS: ATTEND Physician Assistant Medical | DX: Z04.3 Encounter for examination and observation following other accident (principal); Z91.81 History of falling; M17.11 Unilateral primary osteoarthritis, right knee; M77.32 Calcaneal spur, left foot ==

== ENCOUNTER → 2023-07-29 | Outpatient (CLI) | payer OTHER | LOC: M RAD 09:25 | PROVIDERS: ATTEND Family Medicine | DX: M75.101 Unspecified rotator cuff tear or rupture of right shoulder, not specified as traumatic (principal) ==

== ENCOUNTER → 2023-08-29 | Outpatient (CLI) | payer OTHER | LOC: M PLAIMG 07:09 | PROVIDERS: ATTEND Family Medicine | DX: M54.12 Radiculopathy, cervical region (principal) ==

== ENCOUNTER → 2024-01-01 | Outpatient (CLI) | payer OTHER | LOC: M WHC 08:54 | PROVIDERS: ATTEND Family Medicine | DX: Z12.31 Encounter for screening mammogram for malignant neoplasm of breast (principal) ==

== ENCOUNTER → 2024-04-03 | Outpatient (REF) | payer OTHER ==
[~2024-04-03] MED LIST changes: +GABA-1172 PO; -GABA-282 PO
[2024-04-03 13:10] LABS: APPEARANCE, URINE HAZY (CLEAR); BACTERIA, URINE AUTO 1+ (NEGATIVE); BILIRUBIN, URINE AUTO NEGATIVE (NEGATIVE); BLOOD, URINE BLOOD 1+ (NEGATIVE); COLOR, URINE YELLOW (YELLOW); GLUCOSE, URINE (UA) AUTO NEGATIVE (NEGATIVE); KETONE, URINE AUTO NEGATIVE (NEGATIVE); LEUKOCYTE ESTERASE, URINE AUTO 3+ (NEGATIVE); MUCUS, URINE SMALL (NEGATIVE); NITRITE, URINE AUTO NEGATIVE (NEGATIVE); PROTEIN, URINE AUTO NEGATIVE (NEGATIVE); RBC, URINE AUTO 12 /HPF (0-3); SPECIFIC GRAVITY URINE AUTO 1.009 (1.002-1.035); SQUAMOUS EPITHELIAL CELL UR AU 0 /HPF (0-6); UROBILINOGEN, URINE AUTO 0.2 mg/dL (0.0-2.0); WBC, URINE AUTO 54 /HPF (0-3)
== END ==
LOC: M LAB REF 12:10
PROVIDERS: ATTEND Physician Assistant
DX: N39.0 Urinary tract infection, site not specified (principal)

== ENCOUNTER → 2024-08-23 | Outpatient (CLI) | payer OTHER | LOC: M RAD 09:04 | PROVIDERS: ATTEND Family Medicine | DX: M54.50 Low back pain, unspecified (principal) ==